=== PATIENT | male | born 1955 | race Caucasian/White ===

== ENCOUNTER 2023-11-03 19:32 | Inpatient (IN) | payer MEDICARE, OTHER ==
[~2023-11-03] VITALS: Ht 175.3 cm; Wt 79.8 kg
[2023-11-03] MEDS ORDERED: DOCU-141 PO (22:16)
[2023-11-03] MEDS ORDERED: ACET-3117 PO (22:16)
[2023-11-03] MEDS ORDERED: FOLI1TAB27 PO (22:16)
[2023-11-03] MEDS ORDERED: TRAZ-182 PO (22:16)
[2023-11-03] MEDS ORDERED: MEMA10TA PO (22:16)
[2023-11-03] MEDS ORDERED: OLAN5TAB3 PO (22:16)
[2023-11-03] MEDS ORDERED: TERB250T53 PO (22:16)
[2023-11-03] MEDS ORDERED: MAG HYDROX/AL HYDROX/SIMETH 30 ML LIQUID UDC PO PRN (23:00)
[2023-11-03] MEDS ORDERED: MAGNESIUM HYDROXIDE 30 ML LIQUID UDC PO PRN (23:00)
[2023-11-03] MEDS: BLOOD SUGAR DIAGNOSTIC 1 EACH STRIP VI ONE (23:04)
[2023-11-03 23:07] VITALS: BP 126/71; TEMP 97.7; O2SAT 96
[2023-11-03] MEDS: LORAZEPAM 1 MG TABLET PO PRN (23:07)
[2023-11-04] MEDS: NICOTINE 21 MG/24HR PATCH TD SCH (09:00)
[2023-11-04] MEDS: risperiDONE 0.5 MG TABLET PO SCH (18:26)
[2023-11-05 08:17] LABS: BASOPHILS % (AUTO) 0.7 % (0.0-2.0); EOSINOPHILS # (AUTO) 0.2 K/uL (0.0-0.7); EOSINOPHILS % (AUTO) 3.2 % (0.0-7.0); HEMATOCRIT 37.6 % (36.7-47.1); HEMOGLOBIN 12.7 g/dL (12.5-16.3); LYMPHOCYTES % (AUTO) 34.5 % (20.5-51.5); MEAN CORPUSCULAR HEMOGLOBIN 29.7 uug (23.8-33.4); MEAN CORPUSCULAR HGB CONC 34 g/dL (32.5-36.3); MEAN CORPUSCULAR VOLUME 87.7 fL (73.0-96.2); MONOCYTES # (AUTO) 0.5 K/uL (0.1-1.30); MONOCYTES % (AUTO) 7.9 % (0.0-11.0); NEUTROPHILS # (AUTO) 3.1 K/uL (1.8-8.9); NEUTROPHILS % (AUTO) 53.7 % (38.5-71.5); PLATELET COUNT (AUTO) 184 K/uL (152-348); RED BLOOD CELL COUNT(AUTO) 4.29 MIL/uL (4.06-5.63); RED CELL DISTRIBUTION WIDTH 15.1 % (12.1-16.2); WHITE BLOOD COUNT (AUTO) 5.8 K/uL (3.6-10.2)
[2023-11-05 08:34] LABS: DIFFERENTIAL COMMENT 1
[2023-11-05] MEDS: THIAMINE HCL 100 MG TABLET PO SCH (08:41)
[2023-11-05] MEDS: FOLIC ACID 1 MG TABLET PO SCH (08:41)
[2023-11-05 08:48] LABS: THYROID STIMULATING HORMONE 1.981 mIU/mL (0.358-3.740)
[2023-11-05] MEDS ORDERED: FOLIC ACID 1 MG TABLET PO SCH (09:00)
[2023-11-05 09:31] LABS: ALBUMIN 2.5 g/dL (3.4-5.0); BILIRUBIN,TOTAL 0.2 mg/dL (0.2-1.0); CALCIUM 8.6 mg/dL (8.5-10.1); CREATININE 0.7 mg/dL (0.6-1.3); POTASSIUM 4.1 mmol/L (3.5-5.1); TOTAL PROTEIN, SERUM 5.9 g/dL (6.4-8.2)
[2023-11-05] MEDS: CYANOCOBALAMIN 1,000 MCG TABLET PO SCH (12:44)
[2023-11-05 16:09] VITALS: BP 104/58; TEMP 97.2; O2SAT 98
[2023-11-05 20:00] VITALS: BP 107/60; TEMP 98.4; O2SAT 96
[2023-11-06 05:07] LABS: FOLATE (FOLIC ACID), SERUM 8.7 ng/mL (>3.0)
[2023-11-06 19:52] VITALS: BP 96/51; TEMP 98; O2SAT 94
[2023-11-07] MEDS: ZOLPIDEM 5 MG TABLET PO PRN (22:31)
[2023-11-08] MEDS: risperiDONE 1 MG TABLET PO SCH (08:28)
[2023-11-08] MEDS ORDERED: risperiDONE 0.5 MG TABLET PO SCH (09:00)
[2023-11-08] MEDS: ACETAMINOPHEN 325 MG TABLET PO PRN (19:20)
[2023-11-09 08:58] VITALS: BP 101/62; TEMP 98; O2SAT 99
[2023-11-09 15:50] VITALS: BP 99/57; TEMP 98; O2SAT 99
[2023-11-09 19:41] VITALS: BP 111/60; TEMP 98.1; O2SAT 98
[2023-11-10 07:33] VITALS: BP 104/62; TEMP 98; O2SAT 98
[2023-11-10 15:08] VITALS: BP 102/58; TEMP 98; O2SAT 98
[2023-11-10 20:00] VITALS: BP 118/68; TEMP 98.1; O2SAT 97
[2023-11-11 08:08] VITALS: BP 110/46; TEMP 98; O2SAT 98
[2023-11-11 20:00] VITALS: BP 106/66; TEMP 97.6; O2SAT 94
[2023-11-12 07:49] VITALS: BP 111/58; TEMP 98.2; O2SAT 98
[2023-11-12 20:00] VITALS: BP 107/68; TEMP 97.9; O2SAT 97
[2023-11-13] MEDS: risperiDONE 1 MG TABLET PO SCH (20:27)
[2023-11-15 20:00] VITALS: BP 120/70; TEMP 98; O2SAT 97
[2023-11-16 21:11] VITALS: BP 108/71; TEMP 98
[2023-11-17 08:30] VITALS: BP 105/62; TEMP 98.2; O2SAT 99
== END 2023-11-17 12:45 | DRG 885 ==
LOC: ER 19:44 → GPS 22:36
PROVIDERS: ADMIT Psychiatry & Neurology Psychiatry; ATTEND Internal Medicine
DX: F20.0 Paranoid schizophrenia (principal); E44.0 Moderate protein-calorie malnutrition; F02.818 Dementia in other diseases classified elsewhere, unspecified severity, with other behavioral disturbance; F19.10 Other psychoactive substance abuse, uncomplicated; F15.10 Other stimulant abuse, uncomplicated; F11.10 Opioid abuse, uncomplicated; F17.210 Nicotine dependence, cigarettes, uncomplicated; F31.9 Bipolar disorder, unspecified; F43.10 Post-traumatic stress disorder, unspecified; G30.9 Alzheimer's disease, unspecified; E88.09 Other disorders of plasma-protein metabolism, not elsewhere classified; Z79.899 Other long term (current) drug therapy; R56.9 Unspecified convulsions
CPT/HCPCS: 36415; 70450; 82746; 83921; 84443; 85025